=== PATIENT | male | born 1970 | race Caucasian/White ===

== ENCOUNTER 2023-01-17 12:57 | Outpatient (CLI) | payer MEDICAID ==
[2023-01-17 15:05] LABS: ALBUMIN 3.8 g/dL (3.2-5.5); ALBUMIN/GLOBULIN RATIO 1.3 (1.0-2.2); BILIRUBIN,TOTAL 0.5 mg/dL (0.2-1.0); CALCIUM 8.8 mg/dL (8.5-10.3); CREATININE 0.9 mg/dL (0.6-1.2); POTASSIUM 4.2 mmol/L (3.5-5.0); TOTAL PROTEIN 6.7 g/dL (6.7-8.2)
[2023-01-17 15:20] LABS: THYROID STIMULATING HORMONE 2.05 uIU/mL (0.34-5.60)
== END 2023-01-17 12:58 | disposition home or self-care (01) ==
LOC: LAB.S 12:57
PROVIDERS: ATTEND Physician Assistant Medical
DX: I10 Essential (primary) hypertension (principal); Z13.29 Encounter for screening for other suspected endocrine disorder
CPT/HCPCS: 36415; 80050

== ENCOUNTER 2023-06-04 14:31 | Outpatient (CLI) | payer MEDICAID ==
[2023-06-04 20:42] LABS: BASOPHILS # (AUTO) 0.1 10^3/uL (0.0-0.1); BASOPHILS % (AUTO) 0.7 %; EOSINOPHILS # (AUTO) 0.2 10^3/uL (0.0-0.7); EOSINOPHILS % (AUTO) 2.1 %; HCT - HEMATOCRIT 45.8 % (42.0-52.0); HGB - HEMOGLOBIN 14.7 g/dL (14.0-18.0); LYMPHOCYTES # (AUTO) 1.9 10^3/uL (1.5-3.5); LYMPHOCYTES % (AUTO) 22.4 %; MEAN CORPUSCULAR HEMOGLOBIN 31.1 pg (27.0-31.0); MEAN CORPUSCULAR HGB CONC 32.1 g/dL (32.0-36.0); MEAN CORPUSCULAR VOLUME 96.8 fL (80.0-94.0); MEAN PLATELET VOLUME 10.8 fL (7.4-11.4); MONOCYTES # (AUTO) 0.6 10^3/uL (0.0-1.0); MONOCYTES % (AUTO) 7.1 %; NEUTROPHILS # (AUTO) 5.7 10^3/uL (1.5-6.6); NEUTROPHILS % (AUTO) 67.5 %; PLT - PLATELET COUNT 222 10^3/uL (130-450); RED BLOOD COUNT 4.73 10^6/uL (4.70-6.10); RED CELL DISTRIBUTION WIDTH 13.4 % (12.0-15.0); WHITE BLOOD COUNT 8.5 x10^3/uL (4.8-10.8)
[2023-06-04 21:16] LABS: ALBUMIN 4.1 g/dL (3.2-5.5); ALBUMIN/GLOBULIN RATIO 1.5 (1.0-2.2); ALKALINE PHOSPHATASE 72 IU/L (42-121); ALT ALANINE AMINOTRANSFERASE 22 IU/L (10-60); AST ASPARTATE AMINOTRANSFERASE 18 IU/L (10-42); BILIRUBIN,TOTAL 0.4 mg/dL (0.2-1.0); BUN - BLOOD UREA NITROGEN 13 mg/dL (6-20); CALCIUM 8.9 mg/dL (8.5-10.3); CARBON DIOXIDE - CO2 34 mmol/L (21-32); CHLORIDE 101 mmol/L (101-111); CHOL/HDL RATIO 2.9 (<5.0); CHOLESTEROL 167 mg/dL; GFR - MDRD 78 (>89); GLUCOSE 148 mg/dL (74-104); HDL CHOLESTEROL 57 mg/dL; LDL CHOLESTEROL,CALCULATED 59 mg/dL; POTASSIUM 3.6 mmol/L (3.5-4.5); SODIUM 138 mmol/L (135-145); TOTAL PROTEIN 6.9 g/dL (6.4-8.9); TRIGLYCERIDES 256 mg/dL (48-352); VLDL CHOLESTEROL 51 mg/dL
[2023-06-04 21:35] LABS: THYROID STIMULATING HORMONE 1.19 uIU/mL (0.34-5.60)
[2023-06-04 21:50] LABS: ESTIMATED AVERAGE GLUCOSE 134 mg/dL (70-100); HEMOGLOBIN A1c% 6.3 % (4.27-6.07)
[2023-06-06 08:11] LABS: HIV SCREEN 4TH GENERATION Non Reactive (Non Reactive)
[2023-06-06 09:09] LABS: HCV AB Non Reactive (Non Reactive)
== END 2023-06-04 14:32 | disposition home or self-care (01) ==
LOC: LAB.S 14:31
PROVIDERS: ATTEND Nurse Practitioner Acute Care
DX: Z12.5 Encounter for screening for malignant neoplasm of prostate (principal); Z13.228 Encounter for screening for other metabolic disorders; Z13.220 Encounter for screening for lipoid disorders; Z13.1 Encounter for screening for diabetes mellitus; Z13.29 Encounter for screening for other suspected endocrine disorder; Z13.0 Encounter for screening for diseases of the blood and blood-forming organs and certain disorders involving the immune mechanism; Z11.59 Encounter for screening for other viral diseases; Z11.4 Encounter for screening for human immunodeficiency virus [HIV]
CPT/HCPCS: 36415; 80050; 80061; 83036; 83721; 84153; 86803; 87389

== ENCOUNTER 2024-01-25 02:40 | Observation (INO) | payer MEDICAID ==
[2024-01-25] MEDS ORDERED: ASPIRIN CHEW 81 MG TABLET ONE (02:44)
[2024-01-25] MEDS: ASPIRIN CHEW 81 MG TABLET PO STA (02:45)
--- NOTE | 2024-01-25 02:56 | ED Physician Documentation ---
History of Present Illness - Stated complaint Stated Complaint: CHEST PX - Chief complaint Chief Complaint: Cardiac - History obtained from History obtained from: Patient - Additonal information Additional information: 53yM with pmh preDM, daily smoker, htn (noncompliant with lisinopril), with no FH NH, p/w L collarbone pain starting at 3pm, worsening acutely tonight after doing cocaine at 10pm, and progressively worsening, prompting him to come to ER. denies n/v, fever, cough. patient has had uri symptoms for about 3 weeks of nasal congestion, sore throat. PD PAST MEDICAL HISTORY - Past Medical History Past Medical History: No - Past Surgical History Past Surgical History: Yes General: Other - Present Medications Home Medications: Ambulatory Orders Medication Instructions Recorded Confirmed No Known Home Medications 01/25/24 01/25/24 - Allergies Allergies/Adverse Reactions: Allergies Allergy/AdvReac Type Severity Reaction Status Date / Time No Known Drug Allergies Allergy Verified 01/25/24 02:53 - Social History Does the pt smoke?: Yes Smoking Status: Current every day smoker Does the pt drink ETOH?: No Does the pt have substance abuse?: Yes Substance Use and Type: Meth - Immunizations Immunizations are current?: Yes - POLST Patient has POLST: No PD ED PE NORMAL - Vitals Vital signs reviewed: Yes - General General: Alert and oriented X 3, Well developed/nourished, Other (diaphoretic, anxious appearing) - HEENT HEENT: Atraumatic, PERRL, EOMI, Moist mucous membranes, Pharynx benign - Neck Neck: Supple, no meningeal sign - Cardiac Cardiac: RRR - Respiratory Respiratory: No respiratory distress, Clear bilaterally - Abdomen Abdomen: Non tender, Non distended Results - Vitals Vitals: Vital Signs - 24 hr 01/25/24 01/25/24 01/25/24 02:40 03:18 03:48 Temperature 37.2 C Heart Rate 94 92 90 Respiratory 30 H 23 22 Rate Blood Pressure 154/94 H 154/90 H 138/90 H O2 Saturation 98 93 93 01/25/24 01/25/24 01/25/24 04:18 04:48 05:00 Temperature 98.6 C H Heart Rate 86 83 82 Respiratory 18 19 18 Rate Blood Pressure 133/81 H 138/91 H 150/84 H O2 Saturation 95 96 94 Oxygen O2 Source Room air - EKG (time done) 0246 EKG releavant findings:: EKG personally interpreted by author of this note. Relevant findings are: Rate: Rate (enter#) (95) Rhythm: NSR Intervals: Normal HI, RBBB Ischemia: No: ST elevation c/w ischemia 0334 EKG releavant findings:: EKG personally interpreted by author of this note. Relevant findings are: Rate: Rate (enter#) (87) Rhythm: NSR [place]: Normal Intervals: Normal HI, RBBB QRS: Normal Ischemia: Other (no STEMI) - Labs Labs: Laboratory Tests 01/25/24 01/25/24 01/25/24 02:49 02:49 02:49 WBC 26.2 H RBC 4.82 Hgb 14.5 Hct 44.9 MCV 93.2 MCH 30.1 MCHC 32.3 RDW 12.8 Plt Count 228 MPV 10.1 Neut # (Auto) Not Reportable Lymph # (Auto) Not Reportable [place] # (Auto) Not Reportable Eos # (Auto) Not Reportable Baso # (Auto) Not Reportable Absolute Nucleated RBC Not Reportable Total Counted 100 Band Neuts % (Manual) 4 Abnorm Lymph % (Manual) 0 Nucleated RBC % Not Reportable Neutrophils # (Manual) 21.7 H Lymphocytes # (Manual) 2.9 Monocytes # (Manual) 1.6 H Eosinophils # (Manual) 0.0 Basophils # (Manual) 0.0 Differential Comment MANUAL DIFFERENTIAL Platelet Estimate NORMAL (130-450,000) RBC Morph Micro Appear NORMAL APPEARANCE D-Dimer VBG pH VBG pCO2 VBG pO2 VBG HCO3 VBG Total CO2 VBG O2 Saturation VBG Base Excess Sodium 133 L Potassium 3.6 Chloride 97 L Carbon Dioxide 31 Anion Gap 5.0 L BUN 22 H Creatinine 1.4 H Estimated GFR (MDRD) 53 L Glucose 173 H Lactic Acid Calcium 9.7 Total Bilirubin 0.9 AST 20 ALT 23 Alkaline Phosphatase 87 Troponin I High Sens 21.5 H* B-Natriuretic Peptide 23 Total Protein 7.6 Albumin 4.3 Globulin 3.3 Albumin/Globulin Ratio 1.3 Lipase 37 Nasal Adenovirus (PCR) Nasal B. parapertussis DNA (PCR) Nasal Coronavir 229E PCR Nasal Coronavir HKU1 PCR Nasal Coronavir NL63 PCR Nasal Coronavir OC43 PCR Nasal Enterovir/Rhinovir PCR Nasal Influenza B PCR Nasal Influenza A PCR Nasal Parainfluen 1 PCR Nasal Parainfluen 2 PCR Nasal Parainfluen 3 PCR Nasal Parainfluen 4 PCR Nasal RSV (PCR) Nasal B.pertussis DNA PCR Nasal C.pneumoniae (PCR) Chris Human Metapneumo PCR Nasal M.pneumoniae (PCR) Nasal SARS-CoV-2 (PCR) 01/25/24 01/25/24 01/25/24 02:49 03:10 03:19 WBC RBC Hgb Hct MCV MCH MCHC RDW Plt Count MPV Neut # (Auto) Lymph # (Auto) [place] # (Auto) Eos # (Auto) Baso # (Auto) Absolute Nucleated RBC Total Counted Band Neuts % (Manual) Abnorm Lymph % (Manual) Nucleated RBC % Neutrophils # (Manual) Lymphocytes # (Manual) Monocytes # (Manual) Eosinophils # (Manual) Basophils # (Manual) Differential Comment Platelet Estimate RBC Morph Micro Appear D-Dimer < 200.0 L VBG pH 7.467 H VBG pCO2 36.2 L VBG pO2 55.8 H VBG HCO3 25.6 VBG Total CO2 26.7 VBG O2 Saturation 90.2 H VBG Base Excess 2.1 H Sodium Potassium Chloride Carbon Dioxide Anion Gap BUN Creatinine Estimated GFR (MDRD) Glucose Lactic Acid Calcium Total Bilirubin AST ALT Alkaline Phosphatase Troponin I High Sens B-Natriuretic Peptide Total Protein Albumin Globulin Albumin/Globulin Ratio Lipase Nasal Adenovirus (PCR) NOT DETECTED Nasal B. parapertussis DNA (PCR) NOT DETECTED Nasal Coronavir 229E PCR NOT DETECTED Nasal Coronavir HKU1 PCR NOT DETECTED Nasal Coronavir NL63 PCR NOT DETECTED Nasal Coronavir OC43 PCR NOT DETECTED Nasal Enterovir/Rhinovir PCR DETECTED A Nasal Influenza B PCR NOT DETECTED Nasal Influenza A PCR NOT DETECTED Nasal Parainfluen 1 PCR NOT DETECTED Nasal Parainfluen 2 PCR NOT DETECTED Nasal Parainfluen 3 PCR NOT DETECTED Nasal Parainfluen 4 PCR NOT DETECTED Nasal RSV (PCR) NOT DETECTED Nasal B.pertussis DNA PCR NOT DETECTED Nasal C.pneumoniae (PCR) NOT DETECTED Chris Human Metapneumo PCR NOT DETECTED Nasal M.pneumoniae (PCR) NOT DETECTED Nasal SARS-CoV-2 (PCR) NOT DETECTED 01/25/24 01/25/24 04:36 04:36 WBC RBC Hgb Hct MCV MCH MCHC RDW Plt Count MPV Neut # (Auto) Lymph # (Auto) [place] # (Auto) Eos # (Auto) Baso # (Auto) Absolute Nucleated RBC Total Counted Band Neuts % (Manual) Abnorm Lymph % (Manual) Nucleated RBC % Neutrophils # (Manual) Lymphocytes # (Manual) Monocytes # (Manual) Eosinophils # (Manual) Basophils # (Manual) Differential Comment Platelet Estimate RBC Morph Micro Appear D-Dimer VBG pH VBG pCO2 VBG pO2 VBG HCO3 VBG Total CO2 VBG O2 Saturation VBG Base Excess Sodium Potassium Chloride Carbon Dioxide Anion Gap BUN Creatinine Estimated GFR (MDRD) Glucose Lactic Acid 0.7 Calcium Total Bilirubin AST ALT Alkaline Phosphatase Troponin I High Sens 16.8 B-Natriuretic Peptide Total Protein Albumin Globulin Albumin/Globulin Ratio Lipase Nasal Adenovirus (PCR) Nasal B. parapertussis DNA (PCR) Nasal Coronavir 229E PCR Nasal Coronavir HKU1 PCR Nasal Coronavir NL63 PCR Nasal Coronavir OC43 PCR Nasal Enterovir/Rhinovir PCR Nasal Influenza B PCR Nasal Influenza A PCR Nasal Parainfluen 1 PCR Nasal Parainfluen 2 PCR Nasal Parainfluen 3 PCR Nasal Parainfluen 4 PCR Nasal RSV (PCR) Nasal B.pertussis DNA PCR Nasal C.pneumoniae (PCR) Chris Human Metapneumo PCR Nasal M.pneumoniae (PCR) Nasal SARS-CoV-2 (PCR) PD Medical Decision Making - ED course ED course: 53yM with multiple risk factors for NH p/w CP over the past 12 hours, worsening at 10pm after doing cocaine. His initial EKG shows RBBB without acute signs of STEMI. no previous available except for EMS rhythm strip in 2013 which does not show RBBB. 324 ASA provided as well as IV ativan for anxiolysis. cbc, abdominal panel, trop, cxr ordered. plan to f/u results. cxr shows prominently increased interstitial markings on my wet read. rvp . bnp, d dimer, vbg added on. Lab work significant for white blood cell count of 26.2, concerning for infection. Chest x-ray is shows bibasilar pneumonia. Sodium 133, creatinine 1.4, glucose 173, troponin 21.5 without acute EKG changes. Repeat EKG is unchanged. Plan to repeat troponin. Blood cultures and lactic acid added on and patient is treated with IV Rocephin and azithromycin for community-acquired pneumonia. Patient is tachypneic and mildly hypoxic on vital signs. Plan to admit here pending stable second troponin. d/w Dr. Keita, [facility], who will place initial orders for admission. Departure - Departure Disposition: ED Place in Observation Clinical Impression: Chest pain, Cocaine use, Pneumonia, SRINI (acute kidney injury), Enterovirus infection, Rhinovirus infection Condition: Fair Instructions: Cocaine Get Help Comments: You were seen in the emergency department for medical evaluation of chest pain. Please follow-up with your primary care provider and return to the emergency department if you have any new or worsening symptoms or other concerns. Forms: PCP List
[2024-01-25 02:58] LABS: BASOPHILS % (AUTO) 0.2 %; EOSINOPHILS % (AUTO) 0.1 %; HCT - HEMATOCRIT 44.9 % (42.0-52.0); HGB - HEMOGLOBIN 14.5 g/dL (14.0-18.0); LYMPHOCYTES % (AUTO) 8.2 %; MEAN CORPUSCULAR HEMOGLOBIN 30.1 pg (27.0-31.0); MEAN CORPUSCULAR HGB CONC 32.3 g/dL (32.0-36.0); MEAN CORPUSCULAR VOLUME 93.2 fL (80.0-94.0); MEAN PLATELET VOLUME 10.1 fL (7.4-11.4); MONOCYTES % (AUTO) 6.9 %; NEUTROPHILS % (AUTO) 83.9 %; PLT - PLATELET COUNT 228 10^3/uL (130-450); RED BLOOD COUNT 4.82 10^6/uL (4.70-6.10); RED CELL DISTRIBUTION WIDTH 12.8 % (12.0-15.0); WHITE BLOOD COUNT 26.2 x10^3/uL (4.8-10.8)
[2024-01-25] MEDS: LORazepam 2 MG/ML VIAL IVP STA (02:58)
[2024-01-25 03:00] LABS: ABNORMAL LYMPHS % (MANUAL) 0 %
[2024-01-25 03:13] LABS: ALBUMIN 4.3 g/dL (3.2-5.5); ALBUMIN/GLOBULIN RATIO 1.3 (1.0-2.2); BILIRUBIN,TOTAL 0.9 mg/dL (0.2-1.0); CALCIUM 9.7 mg/dL (8.5-10.3); CREATININE 1.4 mg/dL (0.6-1.3); POTASSIUM 3.6 mmol/L (3.5-4.5); TOTAL PROTEIN 7.6 g/dL (6.4-8.9)
[2024-01-25] MEDS: ASPIRIN 325 MG TABLET PO STA (03:16)
[2024-01-25 03:24] LABS: VBG BASE EXCESS 2.1 mmol/L (-2 - +2); VBG HCO3 25.6 mmol/L (23-28); VBG OXYGEN SATURATION 90.2 % (60-80); VBG PCO2 36.2 mmHg (41-51); VBG PH 7.467 (7.31-7.41); VBG PO2 55.8 mmHg (25-47); VBG TOTAL CO2 26.7 mmol/L (24-29)
[2024-01-25 03:25] LABS: TROPONIN I HIGH SENSITIVITY 21.5 ng/L (2.3-19.7)
[2024-01-25 03:28] LABS: BAND NEUTROPHILS % (MANUAL) 4 %; DIFFERENTIAL COMMENT MANUAL DIFFERENTIAL; LYMPHOCYTES # (MANUAL) 2.9 10^3/uL (1.5-3.5); LYMPHOCYTES % (MANUAL) 11 %; MONOCYTES # (MANUAL) 1.6 10^3/uL (0.0-1.0); NEUTROPHILS # (MANUAL) 21.7 10^3/uL (1.5-6.6); PLATELET ESTIMATE, MANUAL NORMAL (130-450,000) (NORMAL); RBC MORPHOLOGY (MULTIPLE) NORMAL APPEARANCE (NORMAL)
[2024-01-25] MEDS: SODIUM CHLORIDE 0.9% 1,000 ML IV STA ×2 (03:32→04:40)
[2024-01-25 04:14] LABS: B. PARAPERTUSSIS- RESP PCR PAN NOT DETECTED; B. PERTUSSIS- RESP PCR PANEL NOT DETECTED; C. PNEUMONIAE- RESP PCR PANEL NOT DETECTED; CORONAVIRUS 229E-RESP PCR NOT DETECTED; CORONAVIRUS HKU1-RESP PCR NOT DETECTED; CORONAVIRUS NL63-RESP PCR NOT DETECTED; CORONAVIRUS OC43-RESP PCR NOT DETECTED; HUMAN METAPNEUMOVIRUS NOT DETECTED; INFLUENZA A- RESP PCR PANEL NOT DETECTED; INFLUENZA B - RESP PCR PANEL NOT DETECTED; M. PNEUMONIAE- RESP PCR PANEL NOT DETECTED; PARAINFLUENZA VIRUS 1 NOT DETECTED; PARAINFLUENZA VIRUS 2 NOT DETECTED; PARAINFLUENZA VIRUS 3 NOT DETECTED; PARAINFLUENZA VIRUS 4 NOT DETECTED; RHINOVIRUS/ENTEROVIRUS DETECTED; RSV- RESP PCR PANEL NOT DETECTED; SARS-CoV-2 -RESP PCR PANEL NOT DETECTED
[2024-01-25] MEDS ORDERED: cefTRIAXone 2 GM VIAL ONE (04:42)
[2024-01-25] MEDS: cefTRIAXone 2 GM in SODIUM CHLORIDE 0.9% MINIBAG 100 ML IV STA (04:45)
[2024-01-25] MEDS: AZITHROMYCIN INJ 500 MG in SODIUM CHLORIDE 0.9% 250 ML IV STA (04:50)
[2024-01-25] MEDS ORDERED: ONDANSETRON ODT 4 MG TABLET TL PRN (06:43)
[2024-01-25] MEDS ORDERED: MORPHINE 2 MG/ML CARPUJECT IVP PRN (06:43)
[2024-01-25] MEDS ORDERED: oxyCODONE 5 MG TABLET PO PRN (06:43)
[2024-01-25] MEDS ORDERED: SODIUM CHLORIDE FLUSH 0.9% 10 ML SYRINGE IVP PRN (06:43)
[2024-01-25] MEDS ORDERED: ACETAMINOPHEN 325 MG TABLET PO PRN (06:43)
[2024-01-25 07:25] LABS: BASOPHILS % (AUTO) 0.2 %; EOSINOPHILS # (AUTO) 0.1 10^3/uL (0.0-0.7); EOSINOPHILS % (AUTO) 0.4 %; HCT - HEMATOCRIT 37.4 % (42.0-52.0); HGB - HEMOGLOBIN 12.1 g/dL (14.0-18.0); LYMPHOCYTES # (AUTO) 2.2 10^3/uL (1.5-3.5); LYMPHOCYTES % (AUTO) 11.4 %; MEAN CORPUSCULAR HEMOGLOBIN 30.8 pg (27.0-31.0); MEAN CORPUSCULAR HGB CONC 32.4 g/dL (32.0-36.0); MEAN CORPUSCULAR VOLUME 95.2 fL (80.0-94.0); MEAN PLATELET VOLUME 10.1 fL (7.4-11.4); MONOCYTES # (AUTO) 1.3 10^3/uL (0.0-1.0); MONOCYTES % (AUTO) 6.4 %; NEUTROPHILS # (AUTO) 15.8 10^3/uL (1.5-6.6); NEUTROPHILS % (AUTO) 80.9 %; PLT - PLATELET COUNT 178 10^3/uL (130-450); RED BLOOD COUNT 3.93 10^6/uL (4.70-6.10); RED CELL DISTRIBUTION WIDTH 12.8 % (12.0-15.0); WHITE BLOOD COUNT 19.6 x10^3/uL (4.8-10.8)
[2024-01-25 07:32] LABS: ALBUMIN 3.2 g/dL (3.2-5.5); ALBUMIN/GLOBULIN RATIO 1.3 (1.0-2.2); BILIRUBIN,TOTAL 0.5 mg/dL (0.2-1.0); CALCIUM 8.3 mg/dL (8.5-10.3); MAGNESIUM 1.8 mg/dL (1.7-2.3); POTASSIUM 3.7 mmol/L (3.5-4.5); TOTAL PROTEIN 5.7 g/dL (6.4-8.9)
[2024-01-25 07:33] LABS: CHOL/HDL RATIO 2.5 (<5.0); CHOLESTEROL 113 mg/dL; HDL CHOLESTEROL 46 mg/dL; LDL CHOLESTEROL,CALCULATED 58 mg/dL; LDL/HDL RATIO 1.3 (<3.6); TRIGLYCERIDES 45 mg/dL (48-352); VLDL CHOLESTEROL 9 mg/dL
[2024-01-25 07:43] LABS: THYROID STIMULATING HORMONE 0.42 uIU/mL (0.34-5.60)
--- NOTE | 2024-01-25 08:20 | XRAY Report ---
PROCEDURE: Chest 1V INDICATIONS: Chest Pain TECHNIQUE: One view of the chest was acquired. COMPARISON: None. FINDINGS: Surgical changes and devices: None. Lungs and pleura: There is suggestion of trace left pleural effusion with blunting of left costophre bernabe angle. No pneumothorax. There is mild pulmonary vascular congestion. Ill-defined hazy opacities at bilateral infrahilar region more prominent on the left side. Mediastinum: Mediastinal contours appear normal. Heart size is normal. Bones and chest wall: No suspicious bony lesions. Overlying soft tissues appear unremarkable. IMPRESSION: Finding is concerning for left worse than right bibasilar infiltrate versus atelectasis. Mild pulmonary vascular congestion. Trace left pleural effusion. No pneumothorax. No significant discrepancies from preliminary reading. Reviewed by: Harvinder Reilly MD on 01/25/2024 8:18 AM PDT Approved by: Harvinder Reilly MD on 01/25/2024 8:18 AM PDT Station ID: [id number]
[2024-01-25] MEDS: ASCORBIC ACID 500 MG TABLET PO SCH (08:21)
[2024-01-25] MEDS: MULTIVITAMIN W/MINERALS TABLET PO SCH (08:21)
[2024-01-25] MEDS: BENZONATATE 100 MG CAPSULE PO PRN (08:21)
[2024-01-25] MEDS: FAMOTIDINE 20 MG/2 ML VIAL IVP SCH (08:21)
[2024-01-25 08:48] LABS: ESTIMATED AVERAGE GLUCOSE 137 mg/dL (70-100); HEMOGLOBIN A1c% 6.4 % (4.27-6.07)
[2024-01-25] MEDS: LACTATED RINGERS 1,000 ML IV SCH (10:41)
--- NOTE | 2024-01-25 12:09 | HISTORY & PHYSICAL EXAMINATION ---
Chief Complaint - Chief Complaint Chief Complaint: Chest pain History of Present Illness - Admitted From Admitted From:: Emergency Room - History Obtained From Records Reviewed: Yes History obtained from: Patient - History of Present Illness HPI Comment/Other: Teofilo Milian is a 53-year-old man who presented to the emergency room with chest pain. He reports using cocaine prior to arrival in the emergency room. He complained of pain in the area of his collarbone. He denies nausea, vomiting fever, chills, cough. He has been complaining of nasal congestion and sore throat for approximately 3 weeks. EKG performed in the emergency room revealed a heart rate of 95 with a right bundle branch block pattern and biatrial enlargement. There was no evidence of ST wave changes consistent with ischemia. High-sensitivity troponin was not consistent with myocardial ischemia or myocardial infarction. Initial white blood cell count is 26.2 K and repeat 4 hours later is 20 K. Chest x-ray revealed an opacity in the rightlower lobe/right middle lobe, left upper lobe and left lower lobe. Patient received Rocephin and azithromycin in the emergency room. History - Past Medical History MRSA Hx?: No - Past Surgical History General: reports: Other - POLST Patient has POLST: No Meds/Allgy - Home Medications Home Medications: Ambulatory Orders Medication Instructions Recorded Confirmed No Known Home Medications 01/25/24 01/25/24 - Allergies Allergies/Adverse Reactions: Allergies Allergy/AdvReac Type Severity Reaction Status Date / Time No Known Drug Allergies Allergy Verified 01/25/24 02:53 Review of Systems - Constitutional Constitutional: reports: Fatigue - Genitourinary Genitourinary: reports: Frequency Exam - Vital Signs Vital Signs: Vital Signs x48h Temp Pulse Pulse Resp BP BP Pulse Ox 01/25/24 09:05 36.1 C L 85 18 133/83 H 94 01/25/24 07:50 36.5 C 80 19 132/91 H 97 01/25/24 06:30 77 17 132/91 H 96 01/25/24 06:00 79 18 138/86 H 94 01/25/24 05:30 79 17 126/87 H 94 01/25/24 05:00 82 18 150/84 H 94 01/25/24 04:48 98.6 C H 83 19 138/91 H 96 01/25/24 04:18 86 18 133/81 H 95 - Physical Exam General Appearance: positive: No acute distress, Alert Eyes Bilateral: positive: Conjunctivae nml Neck: positive: No JVD, Trachea midline Respiratory: positive: Other (Good air exchange in all lung thompson no wheezing or crackles.) Cardiovascular: positive: Other (Positive S1-S2 no extra heart sounds.) Skin: positive: No rash Neurologic/Psychiatric: positive: Oriented x3, Motor nml Conclusion/Plan - Problem List (1) Community acquired pneumonia Conclusion/Plan: The etiology of patient leukocytosis and chest x-ray changes are not clear. Differential diagnosis would include a community-acquired pneumonia, changes related to acute use of cocaine which is documented in the medical literature and a viral syndrome. Patient is currently hemodynamically stable and at his baseline from a medical standpoint. He is on room air and oxygen saturation is greater than 94%. Plan is to discharge him on a 7-day course of Augmentin and azithromycin. Please note I did not admit this patient to observation but did do the history and physical. (2) Chest pain Conclusion/Plan: Chest pain is not cardiac related. Etiology is not clear and would include mu sculoskeletal pain and pain possibly related to cocaine use.. - Lab Results Fish Bones: 01/25/24 07:07 01/25/24 07:07
--- NOTE | 2024-01-25 12:48 | PHARMACY PROGRESS NOTE ---
- Best Possible Medication History Admit Date and Time: 01/25/24 0643 Processed by: Pharmacy Medications reviewed in ED?: Yes Medication History completed: Yes Patient Interview: Pt unable to participate Secondary Source(s): Pharmacy records, Insurance records As the person ultimately responsible for medication therapy, providers are able to order a medication from an existing home medication list in [facility] via the "Reconcile Routine" prior to Confirmation of that medication by technical support internship. Such practice is discouraged except when the physician, in their clinical judgment, deems that a medical need exists for a medication without regard to previous use.
[2024-01-25] MEDS: HEPARIN 5,000 UNIT/ML VIAL SUBQ SCH (13:35)
[2024-01-25] MEDS: SODIUM CHLORIDE FLUSH 0.9% 10 ML SYRINGE IVP SCH (13:35)
--- NOTE | 2024-01-25 14:26 | Discharge Plan ---
Discharge Plan Problem Reviewed?: Yes Disposition: 01 Home, Self Care Condition: Stable Prescriptions: Amox/Clav 875/125 [Augmentin 875/125 Tab] 1 tablet PO Q12H 7 Days #14 tablet Azithromycin 250 mg PO DAILY 4 Days #4 tablet Diet: Regular Activity Restrictions: Activity as Tolerated Shower Restrictions: No Driving Restrictions: No Instruction Topics: Cocaine Get Help Health Concerns: History of Present Illness: Teofilo Milian is a 53-year-old man who presented to the emergency room with chest pain. He reports using cocaine prior to arrival in the emergency room. He complained of pain in the area of his collarbone. He denies nausea, vomiting fever, chills, cough. He has been complaining of nasal congestion and sore throat for approximately 3 weeks. EKG performed in the emergency room revealed a heart rate of 95 with a right bundle branch block pattern and biatrial enlargement. There was no evidence of ST wave changes consistent with ischemia. High-sensitivity troponin was not consistent with myocardial ischemia or myocardial infarction. Initial white blood cell count is 26.2 K and repeat 4 hours later is 20 K. Chest x-ray revealed an opacity in the rightlower lobe/right middle lobe, left upper lobe and left lower lobe. Patient received Rocephin and azithromycin in the emergency room. Hospital Course: Patient was evaluated after arrival on the medical floor. He is hemodynamically stable on room air and at his baseline from a mental standpoint. Plan is to discharge patient to home on p.o. antibiotics. Plan of Treatment: 1. Please take all medications as prescribed. 2. Please stop using cocaine. 3. Please follow-up with your primary care provider in 2 to 4 weeks. Recommend obtaining a chest x-ray in approximately 8 weeks to evaluate for resolution of opacities on chest x-ray. Care Goals: Goal of care is to return to health baseline. Assessment: In summary, Tefoilo Austinchen 53-year-old man who was evaluated in the emergency room for chest pain. Etiology of chest pain is not clear but most likely is musculoskeletal in nature or related to recent cocaine use. In the emergency room it was noted he had a leukocytosis and opacities on his chest x-ray. Plan is a course of treatment with p.o. antibiotics. Additional Instructions or Follow Up instructions: You were seen in the emergency department for medical evaluation of chest pain. Please follow-up with your primary care provider and return to the emergency department if you have any new or worsening symptoms or other concerns. No Smoking: If you smoke, Please STOP! Call for help.
--- NOTE | 2024-01-25 15:16 | DISCHARGE SUMMARY ---
Discharge Summary Admit Date: 01/25/24 Discharge Date: 01/25/24 Discharging Provider: Dejon Martinez MD Condition at Discharge: Stable Discharge Disposition: 01 Home, Self Care - DIAGNOSES Admission Diagnoses: 1. Community-acquired pneumonia 2. Chest pain Discharge Diagnoses with Status of Each Condition: 1. Community-acquired pneumonia 2. Chest pain - HPI History of Present Illness: Teofilo Milian is a 53-year-old man who presented to the emergency room with chest pain. He reports using cocaine prior to arrival in the emergency room. He complained of pain in the area of his collarbone. He denies nausea, vomiting fever, chills, cough. He has been complaining of nasal congestion and sore throat for approximately 3 weeks. EKG performed in the emergency room revealed a heart rate of 95 with a right bundle branch block pattern and biatrial enlargement. There was no evidence of ST wave changes consistent with ischemia. High-sensitivity troponin was not consistent with myocardial ischemia or myocardial infarction. Initial white blood cell count is 26.2 K and repeat 4 hours later is 20 K. Chest x-ray revealed an opacity in the rightlower lobe/right middle lobe, left upper lobe and left lower lobe. Patient received Rocephin and azithromycin in the emergency room. - HOSPITAL COURSE Hospital Course: Patient was evaluated after arrival on the medical floor. He is hemodynamically stable on room air and at his baseline from a mental standpoint. Plan is to discharge patient to home on p.o. antibiotics. - ALLERGIES Allergies/Adverse Reactions: Allergies Allergy/AdvReac Type Severity Reaction Status Date / Time No Known Drug Allergies Allergy Verified 01/25/24 02:53 - MEDICATIONS Home Medications: Ambulatory Orders Medication Instructions Recorded Confirmed Amox/Clav 875/125 [Augmentin 1 tablet PO Q12H 7 Days #14 tablet 01/25/24 875/125 Tab] Azithromycin 250 mg PO DAILY 4 Days #4 tablet 01/25/24 - PHYSICAL EXAM AT DISCHARGE General Appearance: positive: No acute distress, Alert Eyes Bilateral: positive: Conjunctivae nml Neck: positive: No JVD, Trachea midline Respiratory: positive: Other (Good air exchange in all lung thompson no wheezing no crackles.) Cardiovascular: positive: Other (Positive S1-S2 no extra heart sounds) Abdomen: positive: Other (Soft nontender nondistended positive bowel sounds) Skin: positive: No rash Extremities: positive: No pedal edema Neurologic/Psychiatric: positive: Oriented x3, Motor nml - LABS Result Diagrams: 01/25/24 07:07 01/25/24 07:07 - FOLLOW UP Follow Up: Please arrange for follow-up with your primary care provider. Recommend obtaining another chest x-ray in approximately 8 weeks. - TIME SPENT Time Spent in Discharge (Minutes): 28
--- NOTE | 2024-01-25 15:28 | Ultrasound Report ---
PROCEDURE: Renal Ltd (Retroperitoneal Ltd INDICATIONS: rajni TECHNIQUE: Real-time scanning was performed of the retroperitoneal organs, with image documentation. COMPARISON: None. FINDINGS: Kidneys: Kidneys are normal in size. Right kidney measures 11.7 cm long; left kidney measures 10.2 cm long. Right renal cortical thickness is 0.8 cm; left renal cortical thickness is 1.0 cm. No max d masses, hydronephrosis, or nephrolithiasis. Miscellaneous: No free abdominal fluid. IMPRESSION: Normal appearance of the kidneys. Reviewed by: Manuel Chavira MD on 01/25/2024 3:27 PM PDT Approved by: Manuel Chavira MD on 01/25/2024 3:27 PM PDT Station ID: [id number]
[2024-01-25 15:43] VITALS: BP 134/81; O2SAT 100
[2024-01-26] MEDS ORDERED: ZINC SULFATE 220 MG CAPSULE PO SCH (09:00)
[2024-01-26] MEDS ORDERED: AZITHROMYCIN INJ 500 MG in SODIUM CHLORIDE 0.9% 250 ML IV SCH (09:00)
[2024-01-26] MEDS ORDERED: cefTRIAXone 1 GM in SODIUM CHLORIDE 0.9% MINIBAG 100 ML IV SCH (09:00)
[2024-01-26] MEDS ORDERED: LACTOBACILLUS RHAMNOSUS GG CAPSULE PO SCH (09:00)
[2024-01-26] MEDS ORDERED: CHOLECALCIFEROL 400 UNIT TABLET PO SCH (09:00)
== END 2024-01-25 16:30 | disposition home or self-care (01) ==
LOC: ED 02:40 → MS2 06:43
PROVIDERS: ADMIT Student in an Organized Health Care Education/Training Program; ATTEND Student in an Organized Health Care Education/Training Program
DX: J18.9 Pneumonia, unspecified organism (principal); I45.10 Unspecified right bundle-branch block; N17.9 Acute kidney failure, unspecified; I10 Essential (primary) hypertension; F17.200 Nicotine dependence, unspecified, uncomplicated; Z20.822 Contact with and (suspected) exposure to COVID-19; Z20.828 Contact with and (suspected) exposure to other viral communicable diseases; Z20.818 Contact with and (suspected) exposure to other bacterial communicable diseases; Z91.148 Patient's other noncompliance with medication regimen for other reason
CPT/HCPCS: 36415; 71045; 76775; 80053; 80061; 82803; 83036; 83605; 83690; 83735; 83880; 84443; 84484; 85025; 85379; 87040; 87633; 93005; 96365; 96368; 96375; 99285; A9270; G0378; J2060; J7120; 83721

== ENCOUNTER 2024-07-17 18:06 | Outpatient (CLI) | payer MEDICAID ==
--- NOTE | 2024-07-18 09:52 | CT Report ---
PROCEDURE: Lung Cancer Screen INDICATIONS: SCREENING FOR LUNG CA TECHNIQUE: A CT scan of the chest was performed. Intravenous contrast media was not administered. Images were re corded and evaluated at appropriate window settings. Reformats: axial MIP of the chest, coronal and s agittal. For radiation dose reduction, the following was used: automated exposure control, adjustment of mA and/or kV according to patient size. COMPARISON: None. FINDINGS: Image quality: Excellent. Prior cancer history: Unsure. Lungs and pleura: No consolidations or groundglass opacities. Mild centrilobular emphysematous change . Central and peripheral airways are normal caliber without bronchial wall thickening or bronchiectas is. No pleural effusions. No pneumothorax. No suspicious pulmonary nodules which require follow up. Mediastinum: Heart size is normal. No pericardial effusion. No large vessel abnormality. No mediastin al adenopathy by size criteria. No anterior or posterior mediastinal mass. Normal esophagus without hiatal hernia Chest wall and lower neck: No chest wall or thyroid mass. No axillary or supraclavicular adenopathy b y size. Bones: No suspicious bone lesion. Posterior fusion hardware in the lower cervical spine. Upper Abdomen: Unremarkable. IMPRESSION: Lung RAD: 1 - Negative. Recommendation: Continue annual screening in 12 Months with LDCT Non-Lung Significant Findings: None. Reviewed by: Marcia Haywood MD on 07/18/2024 9:51 AM PDT Approved by: Marcia Haywood MD on 07/18/2024 9:51 AM PDT Station ID: [id number]
--- NOTE | 2024-07-18 10:07 | XRAY Report ---
PROCEDURE: Shoulder 2+V RT INDICATIONS: RIGHT SHOULDER PAIN TECHNIQUE: 3 views of the shoulder were acquired. COMPARISON: None. FINDINGS: Bones: No fractures or dislocations. Postsurgical changes are seen in proximal humerus near surgical neck. Moderate acromioclavicular joint osteoarthritic changes are seen with joint space narrowing, s ubchondral sclerosis and marginal osteophyte formation. [id number] glenohumeral joint osteoarth ritic changes also noted. No suspicious bony lesions. Visualized ribs appear intact. Postsurgical changes are noted in visualized lower cervical spine. Soft tissues: No suspicious soft tissue calcifications. The visualized lungs are within normal limi ts. IMPRESSION: 1. No acute shoulder fracture or dislocation. 2. Moderate acromioclavicular joint osteoarthritis and mild glenohumeral joint osteoarthritis. Postsu rgical changes in proximal humerus. Reviewed by: Harvinder Reilly MD on 07/18/2024 10:06 AM PDT Approved by: Harvinder Reilly MD on 07/18/2024 10:06 AM PDT Station ID: [id number]
== END 2024-07-17 18:07 | disposition home or self-care (01) ==
LOC: DI 18:06
PROVIDERS: ATTEND Nurse Practitioner Acute Care
DX: Z12.2 Encounter for screening for malignant neoplasm of respiratory organs (principal); M19.011 Primary osteoarthritis, right shoulder